=== PATIENT | male | born 1985 | race African-American/Black ===

== ENCOUNTER 2018-07-02 01:45 | Inpatient (IN) ==
[2018-07-02] MEDS ORDERED: ACETAMINOPHEN 500 MG TABLET PO STA (02:59)
[2018-07-02] MEDS ORDERED: ALBUTEROL/IPRATROPIUM 3 ML NEB RESP TX STA (03:12)
[2018-07-02] MEDS ORDERED: methylPREDNISolone SOD SUC 125 MG/2 ML VIAL IV STA (03:12)
[2018-07-02] MEDS ORDERED: VANCOMYCIN INJ 1,000 MG in SODIUM CHLORIDE 0.9% 250 ML IV STA ×2 (03:12→03:45)
[2018-07-02] MEDS ORDERED: SODIUM CHLORIDE 0.9% 1,000 ML IV STA ×2 (03:12→03:13)
[2018-07-02] MEDS ORDERED: CEFEPIME 2,000 MG in SODIUM CHLORIDE 0.9% 100 ML IV STA (03:14)
[2018-07-02 03:38] LABS: Alanine Aminotransferase 23 U/L (16-61); Albumin 2.7 G/DL (3.4-5.0); Alkaline Phosphatase 71 U/L (45-117); Aspartate Amino Transferase 61 U/L (0-37); Bilirubin,Total < 0.39 MG/DL (0.2-1.0); Blood Urea Nitrogen 15 MG/DL (7-18); Calcium 7.7 MG/DL (8.5-10.1); Glucose 99 MG/DL (74-106); Osmolality,Calculated 279.4 MOS/KG (273-304); Potassium 3.5 MMOL/L (3.5-5.1); Sodium 140 MMOL/L (136-145); Total Protein 5.6 G/DL (6.4-8.3)
[2018-07-02 03:41] LABS: Basophils % 0.3 % (0.0-0.8); Eosinophils # 0.2 10*3/uL (0.0-0.87); Eosinophils % 1.2 % (0.00-10.9); Hematocrit 41.2 VOL% (42.0-52.0); Hemoglobin 13.5 GM/DL (14.0-18.0); Immature Granulocytes % 0.5 %; Immature Granulocytes Absolute 0.06 #; Lymphocytes # 0.5 10*3/uL (1.4-4.0); Lymphocytes % 3.6 % (21.2-54.2); Mean Corpuscular HGB Conc 32.8 GM/DL (32-36); Mean Corpuscular Hemoglobin 31 PG (27-34); Mean Corpuscular Volume 93.8 FL (87-102); Mean Platelet Volume 10.6 FL (9.6-12.0); Monocytes # 0.1 10*3/uL (0.11-0.8); Monocytes % 0.8 % (1.7-12.7); Neutrophils % 93.6 % (38.7-73.9); Platelet Count 107 T/CUMM (130-400); Red Blood Count 4.39 MC/CUMM (3.8-5.5); Red Cell Distribution Width 12.6 % (9.3-17.3); White Blood Count 12.8 T/CUMM (4-12)
[2018-07-02 04:06] LABS: Band Neutrophils 11 % (0-10); Eosinophils 3 % (0-10); Lymphocytes 5 % (20-55); Segmented Neutrophils 80 % (50-85)
[2018-07-02 04:07] LABS: Platelet Estimate Decreased
[2018-07-02 04:08] LABS: Total Cells Counted 100
[2018-07-02] MEDS ORDERED: ACETAMINOPHEN 325 MG TABLET PO PRN (05:25)
[2018-07-02] MEDS ORDERED: ONDANSETRON 4 MG/2 ML VIAL IV PRN (05:25)
[2018-07-02] MEDS ORDERED: AZITHROMYCIN INJ 500 MG in SODIUM CHLORIDE 0.9% 250 ML IV SCH (05:30)
[2018-07-02] MEDS: ALBUTEROL/IPRATROPIUM 3 ML NEB RESP TX SCH ×2 (07:58→12:25)
[2018-07-02] MEDS ORDERED: INFLUENZA VIRUS VACCINE 0.5 ML SYRINGE IM ONE (09:00)
[2018-07-02] MEDS ORDERED: PANTOPRAZOLE 40 MG TABLET PO SCH (09:00)
[2018-07-02 13:50] VITALS: BP 145/77
[2018-07-03] MEDS ORDERED: predniSONE 20 MG TABLET PO SCH (09:00)
[2018-07-03] MEDS ORDERED: cefTRIAXone 1,000 MG in SYRINGE 1 EACH IV SCH (09:00)
[2018-07-04] MEDS ORDERED: AZITHROMYCIN 250 MG TABLET PO SCH (09:00)
== END 2018-07-02 13:55 | disposition home or self-care (01) | DRG 203 ==
LOC: EDBD → EDUNIT# → N.ED 01:45 → N.EDINP 05:16 → N.CC 05:38
PROVIDERS: ADMIT Internal Medicine; ATTEND Internal Medicine